=== PATIENT | female | born 1945 | race Caucasian/White ===

== ENCOUNTER 2021-11-06 14:41 | Outpatient (CLI) | payer MEDICARE, SELFPAY ==
--- NOTE | ~2021-11-06 | CT_ITS ---
EXAMINATION: CT abdomen w con DATE: 11/06/2021 15:13 INDICATION: Epigastric pain. TECHNIQUE: Computed tomography (CT) of the abdomen and pelvis was performed with 100 cc Omnipaque 350 intravenous contrast. The dose-length product was 135.52 mGy-cm. Automated exposure control and iter ative reconstruction technique were employed. COMPARISON: None. FINDINGS: Lung bases are unremarkable. Heart size normal. No significant pleural or pericardial effus ion. There is cholecystectomy clips with expected prominence of the bile ducts. There is a 5 mm low-d ensity lesion of the pancreatic body, likely benign. There is a 5 mm liver cyst, left hepatic lobe ne ar the falciform ligament. The spleen, adrenal glands and kidneys are unremarkable. Nonobstructive lavinia wel gas pattern. No free air or free fluid. There is mild gastric wall thickening which may be due to underdistention, although gastritis is not excluded. Moderate lumbar spondylosis. IMPRESSION: 1. Mild gastric wall thickening which may be due to underdistention or gastritis. 2: Small 5 mm low-density pancreatic body mass. The differential diagnosis includes pseudocyst, intra ductal papillary mucinous neoplasm (IPMN), mucinous cystic neoplasm (MCN), and the less common serous cystadenoma and neuroendocrine tumor. Reviewed, dictated and finalized at location [facility]. IMPRESSION: 1. Mild gastric wall thickening which may be due to underdistention or gastriti s. 2: Small 5 mm low-density pancreatic body mass. The differential diagnosis incl udes pseudocyst, intraductal papillary mucinous neoplasm (IPMN), mucinous cysti c neoplasm (MCN), and the less common serous cystadenoma and neuroendocrine allyson or.
[2021-11-06 15:02] LABS: Estimated Glomerular Filt Rate > 60
== END 2021-11-06 14:42 | disposition home or self-care (01) ==
LOC: ANHIMG 14:43
PROVIDERS: PCP Family Medicine Adolescent Medicine; Visit Provider Family Medicine Adolescent Medicine
DX: R10.13 Epigastric pain (principal); K86.2 Cyst of pancreas; K76.89 Other specified diseases of liver; M47.816 Spondylosis without myelopathy or radiculopathy, lumbar region; K86.9 Disease of pancreas, unspecified
CPT/HCPCS: 74160; Q9967

== ENCOUNTER 2022-02-27 09:49 | Emergency (ER) | payer MEDICARE, SELFPAY ==
[2022-02-27 10:05] VITALS: BP 155/64; PULSE 78; RESP 16; TEMP 36.8; O2SAT 99
--- NOTE | 2022-02-27 10:18 | ED.GENADULT ---
HPI - General Adult General Chief complaint: Neuro Symptoms/Deficit Stated complaint: blurred vision Time Seen by Provider: 02/27/22 10:19 Source: patient, family, RN notes reviewed and old records reviewed Mode of arrival: ambulatory Limitations: no limitations History of Present Illness HPI narrative: 77 year old female presents to express care with complaint that today after going for her normal walk she was sitting in chair watching TV and experienced visual blurring in her left eye which lasted about 5 minutes. She was concerned so she came to express care to be evaluated.While in clinic she stated a short interval of blurring to her right eye which lasted only a few seconds. Patient denies any headache pain, denies any facial tingling or numbness, is moving all extremities on own power with gait steady. Pupils equal and reactive to light, hand boring machine feeder equal, denies any feeling of dizziness, no MD complaint: visual disturbances Onset (ago): hour(s) (within past hour ) Treatments prior to arrival: none Related Data Home Medications Medication Instructions Recorded Confirmed No Home Medications 02/27/22 02/27/22 Allergies Allergy/AdvReac Type Severity Reaction Status Date / Time No Known Allergies Allergy Verified 10/31/21 08:47 Review of Systems Review of Systems: CONSTITUTIONAL: Denies fever, chills, or sweats. EYES: episode of visual blurring, no redness, or discharge. ENT: Denies rhinorrhea, congestion, sore throat, or otalgia. CARDIOVASCULAR: Denies chest pain, palpitations, or edema. RESPIRATORY: Denies cough or dyspnea. GASTROINTESTINAL: Denies abdominal pain, nausea, vomiting, or diarrhea. GENITOURINARY: Denies dysuria or hematuria. SKIN: Denies rash or itching. MUSCULOSKELETAL: Denies back pain, joint pain, or myalgia. NEUROLOGIC: Denies headache, numbness, or weakness. PSYCHIATRIC: Denies anxiety or depression. All systems reviewed & are unremarkable except as noted in HPI and below PMFSH Past Medical History Medical History (Updated 03/02/22 @ 00:28 by Janeth Puckett NP) Age-related osteoporosis without current pathological fracture Generalized anxiety disorder Pure hypercholesterolemia, unspecified Surgical History Surgical History History of cholecystectomy 2009 Family History Family History Mother Pancreatic cancer Hypercholesterolemia Breast cancer Sibling Depression Social History Social History Smoking status: Never smoker Second hand tobacco smoke exposure: No Alcohol intake: never Substance use: never Substance use type: does not use Gender identity (if verbalized by the patient): Female Sexual Orientation (if Verbalized by the Patient): Straight or Heterosexual Spiritual care concerns: No Agree to blood products: Yes Comments At time of signature agree with nursing documentation of past medical, surgical, social and family history,There is no relevant family history pertinent to presenting complaint Exam Narrative: GENERAL: Well-appearing, well-nourished, and in no acute distress. HEAD: Normocephalic, atraumatic. EYES: PERRLA and EOMI. no nystagmus noted normal visual gore ENT: Nares clear, no rhinorrhea or epistaxis. Mucous membranes moist.TM's normal with good light reflex, throat pink with no lesions or exudates or tonsil swelling NECK: Supple. no lymphadenopathy CHEST: Clear to auscultation. No respiratory distress.SAO2 99% on room air HEART: Regular rate and rhythm. No murmur heard. Normal peripheral pulses. ABDOMEN: Soft, nontender, nondistended, normal active bowel sounds. EXTREMITIES: Normal range of motion. No edema. SKIN: Warm, dry, no rash. NEURO: No focal deficits. Alert and oriented x3.cranial nerves II-XII intact with no deficits noted gait steady Course Course Level of C
--- NOTE | 2022-02-27 10:24 | PC.NURSE ---
1016 simplex operator at bedside 1018 spouse at bedside. 1024 report provider to provider done.
[2022-02-27 12:26] LABS: Glucose Point of Care 85 mg/dl (65-105)
== END 2022-02-27 10:30 | disposition short-term general hospital (02) ==
LOC: EXPCOLL 09:51
PROVIDERS: Emergency Provider Registered Nurse; PCP Family Medicine Adolescent Medicine
DX: H53.9 Unspecified visual disturbance (principal); E78.00 Pure hypercholesterolemia, unspecified; M81.0 Age-related osteoporosis without current pathological fracture
CPT/HCPCS: 82948; 99213; G0463

== ENCOUNTER 2022-02-27 10:43 | Emergency (ER) | payer MEDICARE, SELFPAY ==
[2022-02-27] VITALS (8 sets, daily range): BP systolic 137–179; BP diastolic 56–77; PULSE 72–84; RESP 16; TEMP 36.9; O2SAT 98–100
--- NOTE | ~2022-02-27 | CT_ITS ---
EXAMINATION: CTA BRAIN/CAROTID DATE: 02/27/2022 11:35 INDICATION: Left eye visual disturbance TECHNIQUE: Computed tomographic angiography (CTA) of the head and neck was performed with 100 mL Omni paque-350 intravenous contrast. Multiplanar reconstructions and maximum intensity projection 3D-recon structions of the carotid arteries and of the intracranial arteries were created by the technologist on a separate workstation. Precontrast CT of the head was also obtained. Automated exposure control and iterative reconstruction technique were employed.The dose-length product was 1724.01 mGy-cm. COMPARISON: None. FINDINGS: Carotid arteries: There is atherosclerotic plaque with mild <50% stenosis along the proximal left subclavian artery. Th ere is no evident atherosclerotic plaque with 0% stenosis of the left and right carotid bulbs relativ e to normal distal artery lumen diameter (NASCET criteria). Head: No acute intracranial hemorrhage, acute infarction or abnormal extra axial fluid collection. Symmetri c prominence of the sulci consistent with mild age-appropriate diffuse cerebral volume loss. Ventric les are normal and symmetric. No mass/mass effect. Changes of bilateral intraocular lens replacement. The orbits, paranasal sinuses and mastoid air cells are normal. Intracranial arteries Minimal atherosclerotic plaque along the normal caliber thoracic aorta. No dissection. Small amount o f nonhemodynamically significant atherosclerotic plaque at the bilateral carotid siphons. There is no hemodynamically significant stenosis in the vertebral, basilar and internal carotid arteries. Verteb ral arteries are codominant. No thrombosis, aneurysms or dissection identified. Both A1 and P1 segme nts are patent. Cerebral arterial arborization appears symmetric. IMPRESSION: 1. Atherosclerotic plaque with 0% stenosis of the left and right carotid bulbs relative to normal dis vianey artery lumen diameter (NASCET criteria). 2. No acute intracranial process. 3. Mild nonhemodynamically significant atherosclerotic plaque at the bilateral carotid siphons. No ot her hemodynamically significant stenosis/thrombosis, aneurysm or dissection. Reviewed, dictated and finalized at location A. IMPRESSION: 1. Atherosclerotic plaque with 0% stenosis of the left and right carotid bulbs relative to normal distal artery lumen diameter (NASCET criteria). 2. No acute intracranial process. 3. Mild nonhemodynamically significant atherosclerotic plaque at the bilateral carotid siphons. No other hemodynamically significant stenosis/thrombosis, aneu rysm or dissection.
--- NOTE | 2022-02-27 10:57 | ECG_ITS ---
Measurements Intervals [place] Rate: 74 P: 79 CT: 126 QRS: 61 QRSD: 86 T: 64 QT: 388 QTc: 432 Interpretive Statements SINUS RHYTHM BASELINE ARTIFACT- I, III NORMAL ECG Electronically Signed On 02-27-2022 12:09:38 CDT by Ron Reynoso D.O.
--- NOTE | 2022-02-27 11:09 | ED.EYEPROB ---
HPI - Eye Problem General Chief complaint: Eye Problems Stated complaint: sent from for visual changes Time Seen by Provider: 02/27/22 10:50 Source: patient History of Present Illness HPI Narrative: Patient presents with blurry vision in the left eye. Patient reports she was working up her usual change got home drinking her water and then noticed her left eye was blurry she was monitoring her symptoms want to do dishes and her symptoms resolved. The episode lasted approximately 5 minutes. She is little bit concerned so went to the urgent care to be evaluated and is referred to the ER for further evaluation. She is currently without symptoms and reports her symptoms all without any intervention. She denies any association with headache changes in hearing visual field loss chest pain shortness of breath lightheadedness dizziness. She denies any recent fevers, cough, congestion. Reports she does not take any medications for she is had prior cardiac surgery but no other ocular procedures. She denies any trauma to the area. Related Data Home Medications Medication Instructions Recorded Confirmed No Home Medications 02/27/22 02/27/22 Allergies Allergy/AdvReac Type Severity Reaction Status Date / Time No Known Allergies Allergy Verified 10/31/21 08:47 Review of Systems Review of Systems: CONSTITUTIONAL: Denies fever, chills, or sweats. EYES: Denies visual changes, redness, or discharge. ENT: Denies rhinorrhea, congestion, sore throat, or otalgia. CARDIOVASCULAR: Denies chest pain, palpitations, or edema. RESPIRATORY: Denies cough or dyspnea. GASTROINTESTINAL: Denies abdominal pain, nausea, vomiting, or diarrhea. GENITOURINARY: Denies dysuria or hematuria. SKIN: Denies rash or itching. MUSCULOSKELETAL: Denies back pain, joint pain, or myalgia. NEUROLOGIC: Denies headache, numbness, dizziness, or weakness. PSYCHIATRIC: Denies anxiety or depression. All systems reviewed & are unremarkable except as noted in HPI and below PMFSH Surgical History Surgical History History of cholecystectomy 2008 Family History Family History Mother Pancreatic cancer Hypercholesterolemia Breast cancer Sibling Depression Social History Social History Smoking status: Never smoker Second hand tobacco smoke exposure: No Alcohol intake: never Substance use: never Substance use type: does not use Gender identity (if verbalized by the patient): Female Sexual Orientation (if Verbalized by the Patient): Straight or Heterosexual Spiritual care concerns: No Agree to blood products: Yes Exam Narrative: GENERAL: Well-appearing, well-nourished, and in no acute distress. HEAD: Normocephalic, atraumatic. EYES: PERRLA and EOMI. no hyphema or hypopyon no conjunctival injection no nystagmus no visual field loss ENT: Nares clear, no rhinorrhea or epistaxis. Mucous membranes moist. NECK: Supple. No masses. No JVD CHEST: Clear to auscultation. No respiratory distress. No wheezes rales or rhonchi HEART: Regular rate and rhythm. No murmur heard. Normal peripheral pulses. ABDOMEN: Soft, nontender, nondistended EXTREMITIES: Normal range of motion. No edema. SKIN: Warm, dry, no rash. NEURO: Cranial nerves II through XII are intact patient is 5 out of 5 strength in all extremities sensation intact light touch in all extremities. Alert and oriented x3. PSYCH: Normal mood and affect. Course Reevaluation(s) Reevaluation #1: Patient resting comfortably continues to be asymptomatic results and plan reviewed with patient. Patient is comfortable outpatient plan. Date: 02/27/22 Time: 12:14 Vital Signs Vital signs: Vital Signs Blood Pressure 179/67 H 02/27/22 10:49 Pulse Oximetry 98 02/27/22 10:49 Temperature 36.9 C 02/27/22 10:51 Pulse Rate 72 07
[2022-02-27 11:13] LABS: Basophils Absolute Auto 0.1 K/mm3 (0.0-0.1); Basophils Percent Auto 0.9 % (0.2-1.2); Eosinophils Absolute Auto 0.1 K/mm3 (0-0.3); Eosinophils Percent Auto 1.2 % (0-4.4); Hematocrit 38.8 % (37.0-47.0); Hemoglobin 12.3 g/dL (12.0-15.0); Immature Granulocyte Absolute 0.02 K/mm3 (0.00-0.031); Immature Granulocyte Percent A 0.4 % (0-0.5); Lymphocytes Percent Auto 15.8 % (18.3-44.2); Mean Corpuscular HGB Conc 31.7 g/dl (32-36); Mean Corpuscular Hemoglobin 28.5 pg (26-34); Mean Corpuscular Volume 89.8 fl (80-100); Mean Platelet Volume 9.9 fl (7.4-10.4); Monocytes Absolute Auto 0.3 K/mm3 (0.1-0.6); Neutrophils Absolute Auto 4.3 K/mm3 (1.3-6.7); Neutrophils Percent Auto 75.7 % (45.5-73.1); Platelet Count Result 211 k/mm3 (150-375); Red Blood Count 4.32 M/mm3 (4.2-5.4); White Blood Count 5.7 K/mm3 (4.5-10.0)
[2022-02-27 11:23] LABS: Alanine Aminotransferase 15 U/L (6-35); Albumin Level 4.4 g/dL (3.5-5.1); Alkaline Phosphatase 176 U/L (38-126); Anion Gap 7 mmol/L (8-16); Aspartate Amino Transferase 29 U/L (14-36); Bilirubin,Total 0.4 mg/dL (0.2-1.3); Blood Urea Nitrogen 23 mg/dL (7-17); Calcium 8.8 mg/dL (8.4-10.2); Carbon Dioxide 24 mmol/L (22-30); Chloride 105 mmol/L (98-107); Estimated CRCL calculation 38 ml/min; Estimated Glomerular Filt Rate > 60; Glucose 96 mg/dL (65-110); Potassium 4.3 mmol/L (3.4-5.0); Sodium 136 mmol/L (137-145)
== END 2022-02-27 12:38 | disposition home or self-care (01) ==
PROVIDERS: Emergency Provider Emergency Medicine; PCP Family Medicine Adolescent Medicine
DX: H53.9 Unspecified visual disturbance (principal)
CPT/HCPCS: 36415; 70496; 70498; 80053; 82948; 85025; 93005; 99284; Q9967

== ENCOUNTER 2025-02-17 07:56 | Outpatient (CLI) | payer MEDICARE, SELFPAY ==
--- NOTE | ~2025-02-17 | CT_ITS ---
CT of the Abdomen and Pelvis: Indication: Pancreatic cyst Technique: 2.5 mm axial scans were obtained through the abdomen and pelvis following intravenous adm inistration of 100 cc of Omnipaque 350. Dose reduction technique was used on this scan by utilizing a utomated exposure control and iterative reconstruction technique. The dose-length product (DLP) was 1 79.67 mGy-cm. COMPARISON: 11/06/2021 Findings: Scans through the lung bases are unremarkable. The liver, spleen, adrenals and kidneys are within normal limits. Cholecystectomy clips are present. Probable 4 mm cystic lesion at the pancreatic tail, similar to prior exam. No evidence of aortic aneu rysm. No lymphadenopathy. No bowel obstruction or bowel wall thickening. There is no evidence to suggest acute appendicitis. Images through the pelvis were performed. Urinary bladder unremarkable. No pelvic mass seen. No ascit es. Impression: Stable 4 mm probable cystic lesion at the pancreatic tail. Reviewed, dictated and finalized at [facility]. Impression: Stable 4 mm probable cystic lesion at the pancreatic tail.
== END 2025-02-17 07:57 | disposition home or self-care (01) ==
PROVIDERS: PCP Family Medicine Adolescent Medicine; Visit Provider Nurse Practitioner Family
DX: R10.13 Epigastric pain (principal); K86.2 Cyst of pancreas
CPT/HCPCS: 74177; Q9967